=== PATIENT | female | born 1950 | race Caucasian/White ===

== ENCOUNTER 2017-08-15 09:04 | Emergency (ER) | payer MEDICARE, BC ==
[2017-08-15 09:14] VITALS: BP 160/43
--- NOTE | 2017-08-15 09:17 | ERNOTE ---
Lower Extremity HPI - General Lower Extremities Pain: knee: right - pain Source: patient Exam Limitations: no limitations - Immun/Allergies/Home Medications Immunizations: IMMUNIZATION HX Immunizations Up to Date Yes History of Influenza Vaccine No Hx Pneumococcal Vaccination No Allergies/Adverse Reactions: Allergies Allergy/AdvReac Type Severity Reaction Status Date / Time No Known Allergies Allergy Verified 08/15/17 09:14 Home Medications: HOME MEDICATIONS Ascorbic Acid [Vitamin C] 1,000 mg PO DAILY 09/15/16 [Last Taken Unknown] Cholecalciferol (Vitamin D3) [Vitamin D3] 5,000 unit PO DAILY 09/15/16 [Last Taken Unknown] Cyanocobalamin [Vitamin B-12] 1,000 mcg PO DAILY 09/15/16 [Last Taken Unknown] Furosemide [Lasix] 40 mg PO DAILY@1200 #30 tablet 09/15/16 [Last Taken Unknown] Magnesium 200 mg PO BID 09/15/16 [Last Taken Unknown] Potassium Chloride [K-Dur] 20 meq PO DAILY@1200 #30 tab 09/15/16 [Last Taken Unknown] Warfarin Sodium [Jantoven] 3 mg PO MOTH 09/15/16 [Last Taken Unknown] Metoprolol Succinate 25 mg PO DAILY #30 tab.er.24h 10/30/16 [Last Taken Unknown] Amiodarone HCl 400 mg PO DAILY 06/25/17 [Last Taken Unknown] Armodafinil [Nuvigil] 150 mg PO DAILY 06/25/17 [Last Taken Unknown] Aspirin 81 mg PO DAILY 06/25/17 [Last Taken Unknown] Calcium Carbonate [Calcium] 500 mg PO DAILY 06/25/17 [Last Taken Unknown] Chromium Amino Acid Chelate [Chromium] 200 mcg PO DAILY 06/25/17 [Last Taken Unknown] Turmeric/Turmeric Root Extract [Turmeric] 500 mg PO DAILY 06/25/17 [Last Taken Unknown] Warfarin Sodium [Coumadin] 6 mg PO SUTUWEFRSA 06/25/17 [Last Taken Unknown] metFORMIN HCL [Glucophage] 500 mg PO BIDWM 06/25/17 [Last Taken Unknown] Ibuprofen [Motrin] 600 mg PO TID PRN #30 tablet 08/15/17 [Last Taken Unknown] - History of Present Illness Narrative: Patient has had left knee pain for the past 7 days. She denies any trauma fall twisting or any other activity that she may have done to exacerbate it. He rested for a couple of days took some Tylenol this morning however the pain was so severe this morning that she was unable to bear weight on her left knee. Patient is unable to flex her left knee secondary to pain. Review of Systems - Review of Systems Constitutional: Present: no symptoms reported EYE: Present: no symptoms reported ENT: Present: no symptoms reported Respiratory: Present: no symptoms reported Cardiology: Present: no symptoms reported Gastrointestinal/Abdominal: Present: no symptoms reported Genitourinary: Present: no symptoms reported Musculoskeletal: Present: See HPI - Patient's Past Medical History Patient History - Medical: Diabetes Type 2, Fibromyalgia Patient History - Cardiac/Respiratory: Atrial Fibrillation, CHF Patient History - Cancer: Colon Patient History - Surgical Procedures: Appendectomy, Colon Resection Patient History - Other: None LMP (females 10-50): Menopausal - Family History Father Family History - Medical: No pertinent hx Family History - Cardiac/Respiratory: CVA/Stroke Mother Family History - Medical: No pertinent hx Family History - Cardiac/Respiratory: Atrial Fibrillation - Social History Living Situations: home Abuse History: No History of abuse Psych History: No pertinent hx Does anyone smoke in the home?: No Smoking Status: Former smoker Alcohol Use: none Drug Use: none - Immunizations Immunizations Up to Date: Yes Hx Pneumococcal Vaccination: No History of Influenza Vaccine: No Physical Exam - Physical Exam General Appearance: Present: wd/wn, alert, no apparent distress Respiratory: Present: no respiratory distress, normal breath sounds, no accessory muscle use, chest nontender, lungs clear Cardiovascular/Chest: Present: regular rate, rhythm, no murmur, normal peripheral pulses Extremity Exam: Present: other - left knee appears warmer to the touch than the right however it was wrapped in an Maximino wrap. It does appear slightly more swollen than the right. There is no deformity however the left knee appears slightly more swollen than the right as well there is no redness or streaking noted. When I squeezed the patient's calf on the left side exam is equivocal. Neurological Exam: Present: alert, oriented, normal mood/affect, no motor/ sensory deficits ED Progress - Results and Orders Patient's Lab Results:: I have reviewed the patient's lab results. - Vital Signs Patient's Vital Signs:: I have reviewed the patient's vital signs. Vital Signs: Vital Signs 08/15/17 09:07 Temperature 36.9 C Pulse Rate 61 Respiratory 16 Rate Blood Pressure 160/43 O2 Sat by Pulse 95 Oximetry - Progress/Reassessment Chief Complaint: Lower Extremity Pain/ Injury Plan - Plan Plan: X-ray is negative for an obvious fracture CRP is negative white count is normal this patient has knee pain most probably secondary to arthritis she will be given some pain medication and sent her primary care doctor we will Maximino wrap the left knee for comfort. Departure Clinical Impression: Knee pain, left Qualifiers: Chronicity: unspecified Qualified Code(s): M25.562 - Pain in left knee - Departure Disposition: Home self-care Condition: Good Instructions: Knee Pain Additional Instructions: Follow-up with her primary care doctor next week regarding her knee pain. Prescriptions: Ibuprofen [Motrin] 600 mg PO TID PRN #30 tablet PRN Reason: Pain
[2017-08-15] MEDS ORDERED: KETOROLAC TROMETHAMINE 30 MG/ML VIAL ONE (09:22)
[2017-08-15] MEDS ORDERED: KETOROLAC TROMETHAMINE 30 MG/ML VIAL IV ONE (09:22)
[2017-08-15 09:32] LABS: Hematocrit 39.9 % (37.0-47.0); Hemoglobin 12.6 gm/dL (12.5-16.0); Mean Cell Volume 84.4 fl (78-100); Mean Corpuscular Hemoglobin 26.6 pg (27-31); Mean Corpuscular Hgb Conc 31.6 g/dl (32-36); Mean Platelet Volume 9.3 fl (6.0-9.5); Neutrophil # 3.1 K/mm3 (1.3-6.0); Neutrophil % 56.7 % (42-75.0); Platelet Count 273 K/mm3 (150-450); Red Blood Count 4.73 M/mm3 (4.2-5.4); Red Cell Distribution Width 15.9 % (11.5-14.0); White Blood Count 5.5 K/mm3 (4.0-10.5)
[2017-08-15 09:46] LABS: ALT 29 U/L (19-67); AST 19 U/L (0-48); Albumin * 3.6 gm/dl (3.4-5.0); Alkaline Phosphatase * 71 U/L (50-170); Anion Gap 13.1 mmol/L (6.8-13.8); BUN/Creatinine Ratio 22.9 (9.0-21.6); Bilirubin, Total 0.4 mg/dL (0.0-1.1); Blood Urea Nitrogen 19 mg/dL (3-23); Ca. Corrected For Albumin 8.5 mg/dL (8.4-10.2); Calcium * 8.5 mg/dL (7.9-10.9); Carbon Dioxide 31.5 mmol/L (24-32.6); Chloride 105 mmol/L (97-106); Glucose * 138 mg/dL (70-110); Potassium 4.6 mmol/L (3.4-4.6); Sodium 145 mmol/L (132-142); Total Protein 7.2 gm/dL (6.2-8.2)
== END 2017-08-15 10:03 | disposition home or self-care (01) ==
LOC: ER 09:04
DX: M25.562 Pain in left knee (principal); Z85.038 Personal history of other malignant neoplasm of large intestine; Z87.891 Personal history of nicotine dependence

== ENCOUNTER 2017-11-17 08:52 | Day surgery (SDC) | payer MEDICARE, BC ==
[~2017-11-17 08:52] MED LIST: RINGER'S SOLUTION,LACTATED 1,000 ML IV PRN
[2017-11-17] MEDS ORDERED: RINGER'S SOLUTION,LACTATED 1,000 ML IV PRN (10:43)
[2017-11-17 12:02] VITALS: BP 156/58
--- NOTE | 2017-11-17 15:21 | OR ---
Operative Report - Dictated Report Narrative: OPERATIVE REPORT DATE OF OPERATION: 11/17/2017 PREOPERATIVE DIAGNOSIS: History of colon cancer POSTOPERATIVE DIAGNOSIS: 3 mm rectal polyp, 4 mm rectal polyp, 3 mm polyp at 65 cm (pathology pending). Diverticulosis. Small bowel to colon anastomosis ( pathology pending) OPERATION: Colonoscopy with hot biopsy forceps polypectomies in the rectum 2, at 65 cm. Biopsy of small bowel to colon anastomosis. SURGEON: Anabel Arnold MD ANESTHESIA: VASYL Irwin CRNA INDICATIONS FOR PROCEDURE: The patient is a 67-year-old female referred by Dr. Bob. 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 She is brought for surveillance FINDINGS: 2 small hyperplastic appearing rectal polyps. 3 mm area of polypoid change at 65 cm. Diverticulosis. NARRATIVE OF PROCEDURE: The patient was identified in the holding area, and prior to the administration of anesthetic, a multidisciplinary timeout was observed. With the patient in the left lateral position and after the administration of intravenous sedation, the perineum was inspected. There was no evidence of pilonidal disease or skin breakdown. The external appearance of the anus was normal. Sphincter tone was good. The flexible fiberoptic colonoscope was inserted into the rectum which was insufflated with air. There was a 3 mm area of polypoid change just above the dentate line with an additional 4 mm area of polypoid change at 10 cm. These were biopsied and then thoroughly destroyed with electrocautery. Both sites were seen to be complete and hemostatic. The rectal mucosa and submucosal vascular pattern appeared otherwise normal, and the prep was seen to be complete. The scope was advanced through the sigmoid colon, which contained numerous non-impacted noninflamed diverticular openings. The scope was advanced up the descending colon, where at 65 cm a 3 mm area of polypoid change was encountered. This was biopsied and then thoroughly destroyed with electrocautery. The site was seen to be completely hemostatic. The scope was advanced around the splenic flexure where the triangular haustral architecture of the transverse colon was seen. The scope was advanced across the transverse colon to a small bowel to colon anastomosis. The mucosa at this level appeared normal. A biopsy was obtained. The site appeared hemostatic. The scope was then slowly withdrawn in a circular fashion so that all aspects of colonic mucosa were inspected. The colon was normal in course and caliber. The haustral architecture appeared well preserved throughout with no evidence of external compression. The mucosa and submucosal vascular pattern appeared normal, specifically there was no gross evidence to suggest colitis or inflammatory bowel disease and no AV malformations were seen. The diverticulosis was mild to moderate in degree and confined primarily to the sigmoid colon. No additional polyps were encountered. The scope was gradually withdrawn to the level of the rectum. As much insufflated air as possible was removed. The scope was withdrawn from the patient and the procedure terminated. The patient tolerated the anesthetic and procedure well without complication and was transferred back to the ambulatory surgery area awake and in stable condition. The patient remained stable throughout a period of postoperative observation. She denied abdominal discomfort, was able to tolerate by mouth intake, and was up without assistance. I shared the operative findings with the patient and she was given copies of the photographs which appear in the medical record. She was discharged home with instructions not to engage in hazardous activity today , but may resume normal activity tomorrow, and advance diet as tolerated. She is to continue those medications as listed in the history and physical exam. I made arrangements to contact her with the biopsy reports and will make additional recommendations for treatment and follow-up based upon those results. Reviewed and electronically signed
== END 2017-11-17 08:53 | disposition home or self-care (01) ==
LOC: AMB 08:52
PROVIDERS: ATTEND Surgery
PROC: 0DBE8ZX Excision of Large Intestine, Via Natural or Artificial Opening Endoscopic, Diagnostic (ICD-10-PCS; 2017-11-17)
PROC: 0DBM8ZX Excision of Descending Colon, Via Natural or Artificial Opening Endoscopic, Diagnostic (ICD-10-PCS; principal; 2017-11-17 10:00)
DX: Z12.11 Encounter for screening for malignant neoplasm of colon (principal); D12.4 Benign neoplasm of descending colon; K63.5 Polyp of colon; K62.1 Rectal polyp; E11.9 Type 2 diabetes mellitus without complications; I10 Essential (primary) hypertension; E78.5 Hyperlipidemia, unspecified; E03.9 Hypothyroidism, unspecified; G47.33 Obstructive sleep apnea (adult) (pediatric); D50.9 Iron deficiency anemia, unspecified; I48.0 Paroxysmal atrial fibrillation; Z79.01 Long term (current) use of anticoagulants; Z85.038 Personal history of other malignant neoplasm of large intestine; Z87.891 Personal history of nicotine dependence; Z68.31 Body mass index [BMI] 31.0-31.9, adult